=== PATIENT | female | born 1990 | race Caucasian/White ===

== ENCOUNTER 2016-08-04 06:57 | Emergency (ER) | payer BC ==
[~2016-08-04] VITALS: Ht 167.6 cm; Wt 53.5 kg
[~2016-08-04 06:57] MED LIST: ACET500C5 PO; ALPR0.25 PO; CEPH-443 PO; DENIES
[2016-08-04 07:03] VITALS: Ht 167.6 cm; Wt 53.5 kg
[2016-08-04] MEDS ORDERED: ALBUTEROL 0.083% (NEB) 2.5 MG/3 ML AMP HHN STA (07:11)
[2016-08-04] MEDS ORDERED: ALBU8.5H3 INH (08:17)
--- NOTE | 2016-08-04 08:31 | ERD ---
ER Documentation Chief Complaint Date/Time DATE: 08/04/16 TIME: 08:29 Chief Complaint SOB THIS AM. HX OF ASTHMA HPI 25-year-old female comes emergency department shortness of breath has been on and off for the last 3 days and worsening today. She states that she might have a possible history of asthma, however she has never been definitely diagnosed. Patient reports that she was short of breath, 1 AM, she states that she was up last night, was nonexertional. She has not had any recent leg pain, swelling, does not take any exogenous steroids, denies any history of recent travel or history of DVT or pulmonary embolus. ROS All systems reviewed and are negative except as per history of present illness. Medications Home Meds Active Scripts Albuterol Sulfate* (Proair HFA*) 8.5 Gm Hfa.aer.ad, 2 PUFF INH Q4, #1 INHALER Prov:ARACELI WALKER PA-C 08/04/16 Cephalexin* (Keflex*) 500 Mg Capsule, 500 MG PO Q6 for 5 Days, CAP Prov:BERNA RHODES PA-C 01/31/15 Acetaminophen* (Tylophen*) 500 Mg Capsule, 1 CAP PO Q6H Y for PAIN AND OR ELEVATED TEMP, #20 CAP Prov:ISAEL HUERTAS 01/03/15 Alprazolam* (Xanax*) 0.25 Mg Tablet, 0.25 MG PO Q8H Y for ANXIETY, #6 TAB Prov:SIMON HEART DO 10/31/14 Reported Medications [Denies] No Conflict Check 04/22/10 Allergies Allergies: Coded Allergies: No Known Drug Allergies (Verified Allergy, Mild, 04/22/10) PMhx/Soc History of Surgery: No Anesthesia Reaction: No Hx Neurological Disorder: No Hx Respiratory Disorders: No Hx Cardiac Disorders: No Hx Psychiatric Problems: No Hx Miscellaneous Medical Probl: No Hx Alcohol Use: Yes (Occasionally) Hx Substance Use: No Hx Tobacco Use: No Physical Exam Vitals Vital Signs Date Time Temp Pulse Resp B/P Pulse Ox O2 Delivery O2 Flow Rate FiO2 08/04/16 07:35 85 19 97 21 08/04/16 07:03 97.3 85 18 123/74 96 Physical Exam General: Well-developed, well-nourished. The patient appears in no acute distress. HEENT: Head is normocephalic, atraumatic. No scleral icterus. Neck: Supple. Nontender. Lungs: Clear to auscultation. Normal air movement. Heart: Regular rate and rhythm. S1 and S2 are normal. No murmurs, gallops, or rubs. Abdomen: Soft, nontender, nondistended. Bowel sounds are normoactive. Extremities: No clubbing or cyanosis. Normal pulses. Moving extremities x 4. No weakness. Neurologic: Alert and oriented 3. No focal deficits. Skin: Normal turgor. No rash or lesions. Results 24 hrs Current Medications Medications (Trade) Dose Ordered Sig/Ana Route PRN Reason Start Time Stop Time Status Last Admin Dose Admin Albuterol (Proventil 0.083% (Neb)) 2.5 mg ONCE STAT HHN 08/04/16 07:11 08/04/16 07:12 DC 08/04/16 07:31 Procedures/MDM ED course: Patient was given albuterol 2.5 mg breathing treatment. MDM: 25-year-old female comes in with subjective history of shortness of breath. Patient's examination shows clear breath sounds, she is not hypoxic and does not show any signs of respiratory distress. Patient does report a possible history of asthma, therefore she was given albuterol in the emergency department she reports to be feeling much better. Re-auscultation shows normal breath sounds again. Patient will be given Proair inhaler, and was asked to follow up with her pcp. Suspicion for pulmonary embolus, dissection, acute coronary syndrome, pneumonia is low at this time. Departure Diagnosis: Primary Impression: Asthma Condition: Good Patient Instructions: Asthma Medications Additional Instructions: Call your primary care doctor TOMORROW for an appointment during the next 1-2 days.See the doctor sooner or return here if your condition worsens before your appointment time. ARACELI WALKER PA-C August 04, 2016 08:31
[2016-08-04 08:46] VITALS: RESP 18
== END 2016-08-04 08:46 | disposition home or self-care (01) ==
LOC: FTE 06:57
DX: J45.901 Unspecified asthma with (acute) exacerbation (principal)
CPT/HCPCS: 94664; Z7502; Z7610